=== PATIENT | male | born 1985 | race Caucasian/White ===

== ENCOUNTER 2025-05-07 20:38 | Emergency (ER) | payer SELFPAY ==
[2025-05-07 21:01] VITALS: BP 112/67; PULSE 81; RESP 16; TEMP 36.8; O2SAT 97; BMI 29.8
--- NOTE | 2025-05-08 00:07 | ED.WOUNDLAC ---
HPI - Wound/Laceration General Chief Complaint: Wound/Laceration Stated Complaint: injury left arm Time Seen by Provider: 05/07/25 23:04 Source: patient Mode of arrival: ambulatory Limitations: no limitations History of Present Illness ED Provider: Dr. Jenny Horta HPI narrative: Patient comes to the emergency room complaining of a laceration to the left forearm. Patient states that earlier today, he was doing some garden work, cutting some branches with a knife, which slipped and patient accidentally self lacerated his forearm. Patient states that he is not up-to-date with his tetanus shot and is willing to get a booster. Patient denies any other injuries. Related Data Allergies Allergy/AdvReac Type Severity Reaction Status Date / Time No Known Allergies Allergy Verified 05/07/25 21:05 Review of Systems Review of Systems: Constitutional : No Weight loss, No Fever, No Chills, No Night Sweats, No Fatigue, No Malaise ENT/Mouth : No Hearing loss, No Ear Pain, No Nasal Congestion, No Sinus Pain, No Hoarseness, No sore throat, No Rhinorrhea, No Swallowing Difficulty Eyes: No Eye Pain, No Swelling, No Redness, No Foreign Body, No Discharge, No Vision Changes Cardiovascular : No Chest Pain, No SOB, No Dyspnea on Exertion, No Orthopnea, No Edema, No Palpitations Respiratory : No Cough, No Sputum, No Wheezing, No Smoke Exposure, No Dyspnea Gastrointestinal : No Nausea, No Vomiting, No Diarrhea, No Constipation, No abdominal Pain, No Hematochezia, No Melena Genitourinary : no irregular bleeding, No Dysuria, No Urinary Frequency, No Hematuria, No Urinary Incontinence, No Urgency, No Flank Pain, No Urinary Flow Changes, No Hesitancy Musculoskeletal : No joint pain, No Myalgias, No Joint Swelling Skin : Complaining of a laceration to the left forearm Neuro : No Weakness, No Numbness, No Paresthesias, No Loss of Consciousness, No Dizziness, No Headache Psych : No Anxiety/Panic, No Depression, No SI/HI/AH/VH, No Social Issues, Heme/Lymph: No Bruising, No Bleeding,No Lymphadenopathy Endocrine : No Polyuria, No Polydipsia, No Temperature Intolerance PMFSH Social History Social History Smoked in Last 30 Days: No Advance Directives: No Advance Directives Information Provided: Yes Physical Exam Exam: Exam: Appearance: Alert. Oriented X3. No acute distress. Eyes: Pupils equal, round and reactive to light. ENT: Pharynx normal. Neck: Normal inspection. Neck supple. No lymph nodes noted. No crepitus CVS: Normal heart rate and rhythm. Pulses normal. Normal S1 and S2 Respiratory: No respiratory distress. Breath sounds normal. No Wheezing. No rales Abdomen: Soft and nontender. No rigidity. No distention. Skin: Skin warm and dry. Normal skin color. Normal skin turgor. see extremities below Extremities: No lower extremity edema. No Lacerations. No Rash patient has an 8 cm laceration to the left forearm. Patient is able to flex and extend the wrist, all fingers in the hand, patient states that his sensation is intact Neuro: Oriented X 3. No motor deficit. No sensory deficit. Moving all extremities. No slurred speech. CN 2 through 12 grossly intact Psych: calm, cooperative, normal affect Vital Signs: Vital Signs: Last Vital Signs Temp 98.3 F 05/07/25 21:01 Pulse 81 05/07/25 21:01 Resp 16 05/07/25 21:01 BP 112/67 05/07/25 21:01 Pulse Ox 97 05/07/25 21:01 O2 Del Method Room Air 05/07/25 21:01 BMI result Body Mass Index 29.8 Medical Decision Making Medical Decision Making MDM Narrative: patient id 10 stitches all in the with Vicryl 3-0 in the right forearm, patient tolerated well the procedure. Procedures Laceration Laceration 1: Site: upper extremity Side (If applicable): left Size (cm): 8 Description: linear Depth: simple, single layer Local Anesthetic: lidocaine 1% and with epi Amount of anesthesia used (mL): 15 Pre-repair: wound explored and deep structures intact Skin layer closed with: nylon Size (cm): 3-0 Number of sutures: 10 Discharge Plan Discharge Clinical Impression: Laceration Patient Disposition: Home, Self-Care Instructions: Care For Your Stitches (ED), Laceration (ED) Additional Instructions: Efren nicholas precisam ser removidos em 7 a 10 belcher. Please follow-up with your primary care physician tomorrow. If you have any worsening or new symptoms, please return to the emergency room or call 911 Print Language: Mauritian
[2025-05-08] MEDS: Lidocaine HCl 1%/Epi 1:100,000 20 ML VIAL INFILTRATI (00:24)
[2025-05-08] MEDS: Diphth,Pertus(ACell),Tet Adult 0.5 ML SYRINGE IM (00:24)
[2025-05-08 00:31] VITALS: BP 94/66; PULSE 66; RESP 18; TEMP 36.7; O2SAT 99
--- NOTE | 2025-05-08 00:33 | PC.NURSE ---
provider into to suture laceration 10 stitches, reviewed discharge instructions with pt. pt verbalized understanding.
[2025-05-08 00:34] VITALS: BP 94/66; PULSE 66; RESP 18; TEMP 36.7; O2SAT 99
== END 2025-05-08 00:35 | disposition home or self-care (01) ==
PROVIDERS: Emergency Provider Emergency Medicine
DX: S41.112A Laceration without foreign body of left upper arm, initial encounter (principal); W26.9XXA Contact with unspecified sharp object(s), initial encounter; Y93.9 Activity, unspecified; Y92.89 Other specified places as the place of occurrence of the external cause; Y99.8 Other external cause status; Z23 Encounter for immunization
CPT/HCPCS: 12004; 90471; 90715; 99284; J2004